=== PATIENT | male | born 1975 | race Caucasian/White ===

== ENCOUNTER 2016-11-28 23:34 | Emergency (ER) | payer OTHER ==
[~2016-11-28] VITALS: Ht 172.7 cm; Wt 80.7 kg
[2016-11-28] MEDS ORDERED: ASPIRIN 81 MG TAB.CHEW ONE (23:56)
[2016-11-29] MEDS ORDERED: ASPIRIN 81 MG TAB.CHEW PO ONE ×2 (00:15→00:30)
[2016-11-29] MEDS: NITROGLYCERIN SUBLINGUAL 0.4 MG BOTTLE OF 25. SL PRN ×2 (00:20→00:25)
[2016-11-29 00:29] LABS: ALBUMIN 4.2 g/dL (3.4-5.0); CALCIUM 9.1 mg/dL (8.5-10.1); CREATININE 1.8 mg/dL (0.7-1.3); GFR 42.2; TOTAL BILIRUBIN 0.7 mg/dL (0.2-1.0); TOTAL PROTEIN 8.5 g/dL (6.4-8.2)
[2016-11-29] MEDS ORDERED: IV NORMAL SALINE 50ML 50 ML ONE (00:29)
[2016-11-29] MEDS ORDERED: cefTRIAXone SODIUM 1 GM VIAL IV ONE (00:29)
[2016-11-29] MEDS ORDERED: HYDROmorphone PF 1 MG/ML DISP.SYRIN IV/SQ PRN (00:30)
[2016-11-29] MEDS ORDERED: IV NORMAL SALINE 1,000ML 1,000 ML IV SCH (00:30)
[2016-11-29 00:34] LABS: POTASSIUM 2.9 mmol/L (3.5-5.1)
[2016-11-29 00:39] VITALS: BP 138/80
[2016-11-29] MEDS ORDERED: KETOROLAC 30 MG/ML VIAL. IV ONE (00:45)
[2016-11-29] MEDS ORDERED: ONDANSETRON PF 4 MG/2 ML VIAL. IV ONE (00:45)
[2016-11-29 00:53] LABS: CREATINE KINASE 203 U/L (39-308); LIPASE 120 U/L (73-393)
[2016-11-29] MEDS ORDERED: POTASSIUM CHLORIDE 20 MEQ/15 ML ORAL LIQUID. PO ONE (01:00)
[2016-11-29 01:11] LABS: WHITE BLOOD COUNT 14.5 x10^3/uL (4.0-11.0)
--- NOTE | 2016-11-29 01:11 | PHYS DOC ---
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 Patient states that he has history of kidney stones and has had lithotripsy in the past. He states that he's had about two weeks of worsening left flank pain, he says he thought he had a kidney stone and was trying to get through it and pass it at home. Tonight approximately 8:30 PM she developed left sided chest discomfort described as a tightness, 4 out of 10 with some diaphoresis and shortness of breath along with nausea no emesis. No arm or neck symptoms that brought him to seek treatment here in the emergency department. On ED arrival he rates his pain as 4 out of 10 at his chest and severe at his left flank, however after nitroglycerin sublingually 2 states his chest pain has resolved completely. He has history of hypertension and kidney stones, denies history of coronary artery disease or prior cardiac workup. Patient was afebrile heart rate 92 bpm blood pressure 160/114 on arrival blood pressure normalized to 138/80 after nitroglycerin sublingually 2 corresponding with resolution of his chest discomfort. In addition to nitroglycerin patient received aspirin and rocephin 1gIV, Toradol 30 mg IV upon arrival. ED vitals: 97.6, 92, 160/114, 20, 95% room air Timing/Duration: 1-3 hours Severity: moderate Modifying Factors: improves with medication Associated Symptoms: chest pain, diaphoresis, malaise, nausea/vomiting, shortness of breath Allergies: Coded Allergies: No Known Drug Allergies (Unverified , 11/29/16) Past Medical History Medical History: hypertension, kidney stones Surgical History: other (lithotripsy) Social History Smoker: non-smoker Alcohol: occasionally Drugs: none Review of Systems Constitutional: chills, diaphoresis, denies fever, malaise Respiratory: denies cough, shortness of breath, denies wheezing Cardiovascular: chest pain, denies edema, denies palpitations, denies syncope Gastrointestinal: see HPI Genitourinary: see HPI Musculoskeletal: see HPI, denies joint swelling, denies neck pain Psychiatric/Neurological: denies headache, denies numbness, denies paresthesia Hematologic/Lymphatic: denies blood clots, denies easy bleeding, denies easy bruising Physical Exam General Appearance: WD/WN, no apparent distress Eyes: bilateral eye normal inspection, bilateral eye PERRL, bilateral eye EOMI Ear, Nose, Throat: hearing grossly normal, normal ENT inspection, normal pharynx Neck: non-tender, supple Respiratory: chest non-tender, normal breath sounds, no respiratory distress Cardiovascular: normal peripheral pulses (vitalsEKG is), regular rate, rhythm Gastrointestinal: normal bowel sounds, non tender, soft Back: no vertebral tenderness Extremities: non-tender, normal inspection, no pedal edema Neurologic/Psychiatric: director it II-XII nml as tested, no motor/sensory deficits, alert, normal mood/affect, oriented x 3 Orders, Labs, Meds EKG: Normal sinus rhythm 89 bpm, T contour changes no STEMI changes. Interpreted by Dr. Freedman. Chest AP: Normal cardiac silhouette, lung gonsales appear to be clear with no acute cardiopulmonary process noted. Interpreted by Dr. Freedman. A critical potassium level of 2.9 was called, 40 mEq of oral potassium chloride given in the emergency department. Pertinent labs: Sodium 135, potassium 2.9, BUNs 26, creatinine 1.8, lactic acid 2.2, troponin 0.028, white blood cells 14.5, bands 1, d-dimer 0.42 0203: Time in department 2h 30min, patient with prolonged ED course due to lab and radiology delay. PATIENT: CONSTANCE MOLINA ACCOUNT: [id number] : 1975 LOCATION: ER AGE: 41 SEX: M EXAM STATUS: REG ER ORD. PHYSICIAN: ROXY FREEDMAN DO REASON: L flank pain h/o stones PROCEDURE: CT ABDOMEN PELVIS WO CONTRAST CT abdomen and pelvis without contrast HISTORY: Left flank pain. History of kidney stones. Abdominal hernia. TECHNIQUE: Helical noncontrast CT imaging of the abdomen and pelvis was acquired. Abdomen findings: 2 mm linear scar or nodule right middle lobe abutting the diaphragm. Lower lumbar spine disc bulges. Bilateral nephrolithiasis. There is moderate left renal hydronephrosis associated with 2 obstructing left mid ureteral calculi at the level of the L4 vertebra measuring 5 mm and 2 mm in size. Adrenals, pancreas, spleen, gallbladder and liver are unremarkable. 2 cm fatty umbilical abdominal wall hernia. GI tract including the appendix demonstrates no obstruction or inflammation. No abdominal fluid. Mild left perinephric edema. Pelvis findings: No bladder calculi. Prostate, rectum and bones are unremarkable. Shallow fatty left inguinal hernia. IMPRESSION: 1. Moderate left renal hydronephrosis due to 2 obstructing left ureteral calculi largest measuring 5 mm. 2. Bilateral nephrolithiasis. 3. The appendix is negative. Exposure: One or more of the following individualized dose reduction techniques were utilized for this examination: 1. Automated exposure control 2. Adjustment of the mA and/or kV according to patient size 3. Use of iterative reconstruction technique Electronically signed by: Jacobo Marcum MD (11/29/2016 1:50 AM) [facility] DICTATED AND SIGNED BY: JACOBO MARCUM MD DATE: 11/29/16 0128 CC: PCP,UNKNOWN; ROXY FREEDMAN DO ~ 0233: I discussed the need for inpatient admission to follow cardiac enzymes and rule out acute coronary syndrome. I also discussed the fact that we do not have inpatient urology coverage. Patient states he's never had a kidney stone take this long to pass and he would like to transfer to a facility with urology. After looking online he has requested transfer to [facility] and the RN is calling the transfer line at this time. He is currently resting comfortably with stable vital signs and no recurrence of chest pain. 0236: I discussed the patient with transfer line coordinator at [facility]. She took my phone number and said she would discuss the patient with her hospitalist and call us back shortly. 0249: I discussed the patient with Dr. Rojas animal control officer hospitalist at [facility]. She accepts the patient for transfer and admission to the CCU. Her assistance is greatly appreciated. IMPRESSIONS: Chest Pain (onset 2030 resolved with NTG SL x 2) Two left obstructing ureterolithiases (2mm, 5mm) with hydronephrosis Hypokalemia (2.9) ARF (BUN 26, Cr 1.8) Lactic Acid elevation (2.2) Leukocytosis Departure Time of Disposition: 02:55 Disposition: 02 XFER S[facility]-TRM HOSP Diagnosis: CP, 2 left obstructing ureteral calculi, ARF Condition: STABLE Additional Instructions: EMS transfer to [facility] for CCU admission Dr. Rojas is the accepting physician, will need cardiology and urology consultations. ROXY FREEDMAN DO Nov 29, 2016 01:11
[2016-11-29 01:12] LABS: HEMATOCRIT 45.1 % (39.0-53.0); HEMOGLOBIN 15.7 g/dL (13.0-17.5); MEAN CORPUSCULAR HEMOGLOBIN 29 pg (25-35); MEAN CORPUSCULAR HGB CONC 35 g/dL (31-37); MEAN CORPUSCULAR VOLUME 82 fL (79-100); PLATELET COUNT 391 x10^3/uL (140-400); RED BLOOD COUNT 5.48 x10^6/uL (4.30-5.70); RED CELL DISTRIBUTION WIDTH 12.6 % (11.5-14.5)
[2016-11-29 01:18] LABS: % BANDS 1 % (0-9); % LYMPHS 8 % (24-48); % MONOS 3 % (0-10); % SEGS 88 % (35-66); PLT ESTIMATE ADEQUATE (ADEQUATE)
--- NOTE | 2016-11-29 01:53 | RAD ---
CT abdomen and pelvis without contrast HISTORY: Left flank pain. History of kidney stones. Abdominal hernia. TECHNIQUE: Helical noncontrast CT imaging of the abdomen and pelvis was acquired. Abdomen findings: 2 mm linear scar or nodule right middle lobe abutting the diaphragm. Lower lumbar spine disc bulges. Bilateral nephrolithiasis. There is moderate left renal hydronephrosis associated with 2 obstructing left mid ureteral calculi at the level of the L4 vertebra measuring 5 mm and 2 mm in size. Adrenals, pancreas, spleen, gallbladder and liver are unremarkable. 2 cm fatty umbilical abdominal wall hernia. GI tract including the appendix demonstrates no obstruction or inflammation. No abdominal fluid. Mild left perinephric edema. Pelvis findings: No bladder calculi. Prostate, rectum and bones are unremarkable. Shallow fatty left inguinal hernia. IMPRESSION: 1. Moderate left renal hydronephrosis due to 2 obstructing left ureteral calculi largest measuring 5 mm. 2. Bilateral nephrolithiasis. 3. The appendix is negative. Exposure: One or more of the following individualized dose reduction techniques were utilized for this examination: 1. Automated exposure control 2. Adjustment of the mA and/or kV according to patient size 3. Use of iterative reconstruction technique Electronically signed by: Jacobo Marcum MD (11/29/2016 1:50 AM) [facility]
[2016-11-29 02:16] LABS: BACTERIA,URINE FEW /HPF (0-FEW); BILIRUBIN,URINE NEG (NEG); CLARITY,URINE CLEAR; COLOR,URINE YELLOW; GLUCOSE,URINE 100 mg/dL (NEG); NITRITE,URINE NEG (NEG); SQUAMOUS EPITHELIAL CELL,UR FEW /LPF; UROBILINOGEN,URINE 0.2 mg/dL (0.2 mg/dL)
--- NOTE | 2016-11-29 06:00 | EKG ---
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
--- NOTE | 2016-11-29 07:33 | RAD ---
Indication: Chest pain Technique: Upright portable chest radiograph was obtained. No comparison is available. Findings: The lungs are clear. The cardiopulmonary silhouette is within normal limits. The bony structures are intact. Impression: No active pulmonary disease.
== END 2016-11-29 04:59 | disposition short-term general hospital (02) ==
LOC: ER 23:34
DX: R07.89 Other chest pain (principal); N13.1 Hydronephrosis with ureteral stricture, not elsewhere classified; E87.6 Hypokalemia; N17.9 Acute kidney failure, unspecified; D72.829 Elevated white blood cell count, unspecified; R74.0 Nonspecific elevation of levels of transaminase and lactic acid dehydrogenase [LDH]; I10 Essential (primary) hypertension; Z87.442 Personal history of urinary calculi
CPT/HCPCS: 36415; 71010; 74176; 80053; 81001; 82550; 83605; 83690; 83880; 84484; 85007; 85025; 85379; 87040; 93005; 96365; 96375; 99285; J0696; J1170; J1885; J2405; J7030